=== PATIENT | male | born 1970 | race Caucasian/White ===

== ENCOUNTER → 2020-02-09 | Outpatient (CLI) | payer OTHER ==
--- NOTE | 2020-02-11 07:50 | SLEEPCENT ---
DATE OF PROCEDURE: 02/09/2020 ORDERED BY: Dr. Goodrich Nocturnal polysomnography was performed for evaluation of sleep physiology. 6 hours and 52 minutes of data were reviewed. There were 326.5 minutes of sleep identified. Sleep latency was normal at 11.5 minutes. Rapid eye movement (REM) sleep was mildly delayed at 90.5 minutes. Sleep architecture was fairly well-preserved. There was some fragmentation. Three REM cycles were noted. Overall sleep efficiency 80.1%. The electrocardiogram showed a sinus rhythm with an average heart rate of 65 beats per minute. Electroencephalogram (EEG) showed normal waveforms for awake and sleep. There were 67 respiratory events identified of 10 seconds in duration or greater for an apnea-hypopnea index of 12.3. The events were primarily obstructive not exclusive to sleep stage nor body posture. Arousals from respiratory events occurred 1.7 times per hour. Oxygen desaturations were seen just to 91%. There was some activity in the limb electromyogram (EMG) leads but limb movement arousals were few. IMPRESSION: Obstructive sleep apnea syndrome (G47.33). Apnea-hypopnea index 12.3. RECOMMENDATIONS: The patient should be encouraged to return to the sleep disorder center for pressure therapy. In the interim, alcohol and sedative avoidance should be practiced and caution exercised during the operation of motor vehicles.
== END ==
LOC: M SLEEP 19:42
PROVIDERS: ATTEND Family Medicine
DX: G47.33 Obstructive sleep apnea (adult) (pediatric) (principal)

== ENCOUNTER → 2020-03-23 | Outpatient (CLI) | payer OTHER ==
--- NOTE | 2020-03-29 12:34 | SLEEPCENT ---
DATE OF PROCEDURE: 03/23/2020 INTERPRETATION: Nocturnal polysomnography was performed for the titration of pressure therapy in this patient with obstructive sleep apnea syndrome. Apnea-hypopnea index 12.3. For testing a [employer] [facility] full face mask of medium size was used, 4 cm of water pressure were applied to the circuit and the lights were extinguished. 7 hours 57 minutes of data were reviewed. There were 382 minutes of sleep identified. Sleep latency was mildly prolonged at 30 minutes. REM latency more so prolonged at 137-minute sleep architecture improved with optimal pressure therapy. There was three REM cycles noted. Overall sleep efficiency was 89.2%. The patient's electrocardiogram showed sinus rhythm with an average heart rate of 64 beats per minute. EEG showed fairly normal waveforms for awake and sleep. Respiratory events were fully palliated with CPAP to a pressure of +8 and remaining measures of sleep physiology were normal. IMPRESSION: Obstructive sleep apnea syndrome (G47.33) RECOMMENDATIONS: Nightly use of pressure therapy 8 cm of water.
== END ==
LOC: M SLEEP 20:00
PROVIDERS: ATTEND Family Medicine
DX: G47.33 Obstructive sleep apnea (adult) (pediatric) (principal)